=== PATIENT | female | born 1960 | race Caucasian/White ===

== ENCOUNTER 2017-04-04 17:31 | Emergency (ER) | payer OTHER ==
[~2017-04-04] VITALS: Ht 165.1 cm; Wt 55.2 kg
[~2017-04-04 17:31] MED LIST: AUGMENTIN875 MG PO; BYSTOLIC5 MG PO; FLUOXETINE HCL20 MG PO; METHADONE10 MG; NAPROSYN500 MG PO; NORCO 7.5/321 TABLET PO; SYNTHROID100 MCG
[2017-04-04] MEDS ORDERED: INDOCIN50 MG PO (20:28)
[2017-04-04] MEDS ORDERED: PREDNISONE20 MG PO (20:28)
[2017-04-04] MEDS ORDERED: NORCO 10/3251 TABLET PO (20:28)
[2017-04-04] MEDS ORDERED: LIDODERM 5% P1 PATCH TD (20:28)
[2017-04-04 21:39] VITALS: BP 172/95
== END 2017-04-04 21:40 | disposition home or self-care (01) ==
LOC: EME 17:31
DX: M54.41 Lumbago with sciatica, right side (principal); I10 Essential (primary) hypertension
CPT/HCPCS: 99281; 99284; J3010; J7512